=== PATIENT | female | born 1930 | race Caucasian/White ===

== ENCOUNTER 2018-01-05 12:27 | Emergency (ER) | payer MEDICARE, OTHER ==
[~2018-01-05] VITALS: Ht 157.5 cm; Wt 51.3 kg
[2018-01-05 12:27] VITALS: BP 154/75
--- NOTE | 2018-01-05 12:27 | NUR ---
PT BIBA TO ER BED 11
--- NOTE | 2018-01-05 12:30 | NUR ---
87F ARUNA FROM THE [facility] FOR SUDDEN ONSET GENERALIZED WEAKNESS; PT STATES SHE WAS SITTING DOWN TO EAT AND SUDDENTLY "FELT WEAK". PT ABLE TO MOVE ALL FOUR EXTREMITIES WITH MILD WEAKNESS. NO FACIAL/SMILE ASYMMETRY. GCS=15 NO ACUTE NEURO DEFICITS. BLOOD SUGAR ON ARRIVAL=92. PT DENIES ANY CP OR SOB. PT REPORTS OF RIGHT KNEE PAIN, BUT PT STS CHRONIC PAIN TO RIGHT KNEE. NO ACUTE DISTRESS. AWAITING ER MD NOLASCO. PT WITH NO COMPLAINTS. WILL CONTINUE TO MONITOR.
--- NOTE | 2018-01-05 12:59 | NUR ---
Patient being evaluated by DR MERCEDES at bedside.
[2018-01-05] MEDS ORDERED: NACL 0.9% 1,000 ML IV ONE (13:15)
--- NOTE | 2018-01-05 13:19 | NUR ---
xray by bedside
[2018-01-05 13:56] LABS: BASOPHILS % (AUTO) 0.5 % (0.0-2.0); EOSINOPHILS # (AUTO) 0.1 K/uL (0-0.4); EOSINOPHILS % (AUTO) 1.3 % (0.0-4.0); HEMATOCRIT 36.8 % (36-48); HEMOGLOBIN 12.3 g/dL (12.0-16.0); LYMPHOCYTES # (AUTO) 1.1 K/uL (2.5-16.5); LYMPHOCYTES % (AUTO) 15.6 % (20.5-51.1); MEAN CORPUSCULAR HEMOGLOBIN 30 pg (27-31); MEAN CORPUSCULAR HGB CONC 33 g/dL (33-37); MEAN CORPUSCULAR VOLUME 91.4 fL (80-94); MONOCYTES # (AUTO) 0.7 K/uL (0.8-1.0); MONOCYTES % (AUTO) 9.1 % (1.7-9.3); NEUTROPHILS # (AUTO) 5.4 K/uL (1.8-7.7); NEUTROPHILS % (AUTO) 73.5 % (42.2-75.2); PLATELET COUNT (AUTO) 180 K/uL (140-450); RED BLOOD CELL COUNT(AUTO) 4.03 MIL/uL (4.20-5.40); RED CELL DISTRIBUTION WIDTH 15.8 % (11.6-13.7); WHITE BLOOD COUNT (AUTO) 7.4 K/uL (4.8-10.8)
[2018-01-05] MEDS ORDERED: LOVA10TA PO (14:23)
[2018-01-05] MEDS ORDERED: CALC1CAP45 PO (14:23)
[2018-01-05] MEDS ORDERED: SERT25TA PO (14:23)
[2018-01-05] MEDS ORDERED: VITD1000 PO (14:23)
[2018-01-05] MEDS ORDERED: [UNRECOGNIZED DRUG - CODE] PO (14:23)
[2018-01-05 14:25] LABS: ANION GAP 12.3 (8-16); CARBON DIOXIDE 28.5 mmol/L (21-32); CHLORIDE 106 mmol/L (98-107); CREATININE 1.1 mg/dL (0.6-1.3); GLUCOSE 85 mg/dL (74-106); POTASSIUM 3.8 mmol/L (3.5-5.1); SODIUM SERUM 143 mmol/L (136-145); UREA NITROGEN, BLOOD 20 mg/dL (7-18)
--- NOTE | 2018-01-05 14:26 | NUR ---
ua collected. patient with no complaints at this time. no acute distress noted at this time. vss. will continue to monitor.
[2018-01-05 14:27] LABS: PROTHROMBIN TIME 10.4 secs (10.8-13.4)
[2018-01-05 14:33] LABS: ALBUMIN 3.4 g/dL (3.4-5.0); ASPARTATE AMINOTRANSFERASE 19 U/L (15-37); TOTAL BILIRUBIN 0.8 mg/dL (0.0-1.0)
[2018-01-05 15:12] LABS: BILIRUBIN,URINE NEGATIVE (NEGATIVE); BLOOD, URINE NEGATIVE (NEGATIVE); COLOR,URINE YELLOW (YELLOW); LEUKOCYTE ESTERASE ,URINE 1+ (NEGATIVE); NITRITE, URINE POSITIVE (NEGATIVE); UGLUCOSE NEGATIVE (NEGATIVE)
[2018-01-05] MEDS ORDERED: cefTRIAXone 1,000 MG VIAL ONE (15:14)
--- NOTE | 2018-01-05 15:15 | NUR ---
Patient being reevaluated by DR MERCEDES at bedside.
[2018-01-05 15:18] LABS: APPEARANCE,URINE SLIGHTLY HAZY (CLEAR)
[2018-01-05 15:37] LABS: RBC,URINE NONE SEEN /HPF (0-5); WBC,URINE 6-15 (FEW) /HPF (0-5)
[2018-01-05 15:44] VITALS: BP 137/44
== END 2018-01-05 15:43 | disposition home or self-care (01) ==
LOC: MED 12:27
DX: N39.0 Urinary tract infection, site not specified (principal); E86.0 Dehydration; R53.1 Weakness; Z90.49 Acquired absence of other specified parts of digestive tract; Z95.1 Presence of aortocoronary bypass graft; Z79.899 Other long term (current) drug therapy
CPT/HCPCS: 36415; 71045; 80053; 81001; 82948; 83605; 83880; 84484; 85025; 85610; 85730; 87040; 87086; 87186; 93005; 96361; 96365; 99285; J0696; J7060; Q0092